=== PATIENT | male | born 1990 | race Caucasian/White ===

== ENCOUNTER 2019-01-11 21:01 | Emergency (ER) | payer SELFPAY ==
[~2019-01-11] VITALS: Ht 152.4 cm; Wt 71.0 kg
[2019-01-11 21:04] VITALS: Ht 152.4 cm; Wt 71.0 kg
--- NOTE | 2019-01-11 22:22 | ERD ---
ER Documentation Chief Complaint Chief Complaint GL slip&trip today, mouth pain bcoz of injury HPI 28-year-old male with no significant past medical history presents to the emergency department complaining of laceration to his left upper lip which began just prior to arrival after injury. The patient was running and tripped and fell forward onto his upper lip area. He reports 5/10 pain which is constant. He denies any difficulty opening or closing his jaw. He denies any headache. He did not strike any other part of his head. He took no medication for relief of symptoms prior to arrival. He denies loss of consciousness. He denies any nausea, vomiting, confusion, ataxia, or other symptoms at this time. Symptoms are currently mild in severity. ROS All systems reviewed and are negative except as per history of present illness. Medications Home Meds Active Scripts Bacitracin* (Bacitracin Zinc Oint*) 28.35 Gm Oint, 1 APPLIC TOP BID, #1 TUB APPLI TO Prov:VIRY RASHID PA-C 01/12/19 Allergies Allergies: Coded Allergies: No Known Allergy (Unverified , 01/11/19) PMhx/Soc Medical and Surgical Hx: pt denies Medical Hx, pt denies Surgical Hx Hx Alcohol Use: No Hx Substance Use: No Hx Tobacco Use: No Smoking Status: Never smoker FmHx Family History: No diabetes Physical Exam Vitals Vital Signs Date Temp Pulse Resp B/P (MAP) Pulse Ox O2 O2 Flow FiO2 Time Delivery Rate 01/12/19 98.1 78 17 116/74 99 Room Air 00:23 (88) 01/11/19 37.6 22:22 01/11/19 99.7 111 18 158/84 98 21:04 (108) Physical Exam Const: No acute distress Head: Atraumatic Eyes: Normal Conjunctiva ENT: Normal External Ears, Nose and Mouth. 2 cm Partial-thickness horizontal laceration noted to the left upper lip region with mild active bleeding and no obvious foreign body. Laceration does not cross the vermilion border. Neck: Full range of motion. No meningismus. Resp: Clear to auscultation bilaterally Cardio: Regular rate and rhythm, no murmurs Skin: No rashes. Back: No midline or flank tenderness Ext: No cyanosis, or edema Neur: Awake and alert Psych: Normal Mood and Affect Results 24 hrs Current Medications Medications Dose Sig/Yin Start Time Status Last (Trade) Ordered Route PRN Stop Time Admin Dose Reason Admin Ibuprofen 600 mg ONCE ONCE 01/11/19 DC 01/11/19 (Motrin) PO 22:30 22:22 01/11/19 22:31 Lidocaine 20 ml ONCE ONCE 01/11/19 DC 01/11/19 (Xylocaine INJ 22:30 22:22 2% (Mdv) 20 01/11/19 22:31 ml) Procedures/MDM 28-year-old male presented to the emergency department for laceration of his left upper lip. Full risks, benefits, alternatives were explained to the patient and he gave verbal consent for laceration repair with sutures. Patient has no neurological deficits and did not strike any other part of his head. No indication for CT scan of the head or face at this time. I doubt intracranial hemorrhage. I doubt facial fracture. Laceration Repair by me: Anesthesia: 1% lidocaine locally Location: Left upper lip Tendon/Joint/Nerves: No injury Foreign body: None detected after copious irrigation and exploration Technique: 4 simple Interrupted Sutures to the outer lip and 2 absorbable sutures to the inner lip. Complexity: No subcutaneous sutures/mucosal repair/edge excision Post Closure Length: 2 cm Patient's bleeding was easily controlled in the department and there is no yovani cation of anemia. No evidence of compartment syndrome, neurologic injury, vascular injury, open joint, tendon laceration, or foreign body. Patient is appropriate for outpatient follow up. 48 hour wound check. Scar minimization instructions given. no evidence of life-threatening pathology at time of discharge. Pt/family in agreement with discharge plan/diagnosis. Pt/family advised to return immediately with any new or worsening symptoms. Follow-up with primary care physician within the next 1-2 days. Patient's blood pressure was elevated (>120/80) but appears stable without evidence of hypertension emergency or urgency. The patient is to follow-up and pursue outpatient monitoring and therapy with their primary care physician within 1 week and return immediately if they have any new, worsening, or concerning symptoms. Disclaimer: Inadvertent spelling and grammatical errors are likely due to EHR/dictation software use and do not reflect on the overall quality of patient care. Also, please note that the electronic time recorded on this note does not necessarily reflect the actual time of the patient encounter. Departure Diagnosis: Primary Impression: Lip laceration Condition: Fair RASHID,VIRY J PA-C Jan 11, 2019 22:22
[2019-01-11] MEDS ORDERED: LIDOCAINE 2% (MDV) 20 ML INJ INJ ONE (22:30)
[2019-01-11] MEDS ORDERED: IBUPROFEN 600 MG TAB PO ONE (22:30)
[2019-01-12] MEDS ORDERED: BACI28.34 TOP (00:11)
[2019-01-12 00:23] VITALS: BP 116/74; PULSE 78; RESP 17
== END 2019-01-12 00:23 | disposition home or self-care (01) ==
LOC: FTE 21:01
DX: S01.511A Laceration without foreign body of lip, initial encounter (principal); W18.40XA Slipping, tripping and stumbling without falling, unspecified, initial encounter; Y92.9 Unspecified place or not applicable

== ENCOUNTER 2019-01-14 12:01 | Emergency (ER) | payer SELFPAY ==
[~2019-01-14] VITALS: Ht 160 cm; Wt 71.1 kg
[~2019-01-14 12:01] MED LIST: BACI28.34 TOP
[2019-01-14 12:07] VITALS: BP 123/67; PULSE 83; RESP 18; Ht 160 cm; Wt 71.1 kg
[2019-01-14] MEDS ORDERED: SULF1TAB31 PO (12:50)
[2019-01-14] MEDS ORDERED: CEPH-443 PO (12:50)
--- NOTE | 2019-01-14 12:55 | ERD ---
ER Documentation Chief Complaint Chief Complaint 2nd day wound check lip HPI 28-year-old male presents the emergency department for wound check of the upper lip. Patient had left upper lip laceration which was sutured by myself 3 days ago here. Patient is returning with purulent discharge from the laceration site. Patient is not on oral antibiotics at this time. The patient denies any significant pain, fevers, chills, or other symptoms at this time. Symptoms mild to moderate in severity currently. ROS All systems reviewed and are negative except as per history of present illness. Medications Home Meds Active Scripts Sulfamethoxazole/Trimethoprim* (Bactrim Ds* Tablet) 1 Each Tablet, 1 TAB PO BID, #14 TAB Prov:VIRY RASHID PA-C 01/14/19 Cephalexin* (Keflex*) 500 Mg Capsule, 500 MG PO QID for 7 Days, CAP Prov:VIRY RASHID PA-C 01/14/19 Bacitracin* (Bacitracin Zinc Oint*) 28.35 Gm Oint, 1 APPLIC TOP BID, #1 TUB APPLI TO Prov:VIRY RASHID PA-C 01/12/19 Allergies Allergies: Coded Allergies: No Known Allergy (Unverified , 01/11/19) PMhx/Soc Medical and Surgical Hx: pt denies Medical Hx, pt denies Surgical Hx Hx Alcohol Use: No Hx Substance Use: No Hx Tobacco Use: No Smoking Status: Never smoker FmHx Family History: No diabetes Physical Exam Vitals Vital Signs Date Temp Pulse Resp B/P (MAP) Pulse Ox O2 O2 Flow FiO2 Time Delivery Rate 01/14/19 98.6 83 18 123/67 100 12:07 (85) Physical Exam Const: No acute distress Head: Atraumatic Eyes: Normal Conjunctiva ENT: Normal External Ears, Nose and Mouth. Sutures in place over laceration to the left upper lip. There is purulent discharge noted with mild edema. No significant warmth or facial erythema. Neck: Full range of motion. No meningismus. Resp: No respiratory distress. Skin: No petechiae or rashes Ext: No cyanosis, or edema Neur: Awake and alert Psych: Normal Mood and Affect Results 24 hrs Current Medications Medications Dose Sig/Yin Start Time Status Last (Trade) Ordered Route PRN Stop Time Admin Dose Reason Admin Ceftriaxone 1 gm ONCE ONCE 01/14/19 01/14/19 Sodium IM 13:00 12:48 (Rocephin) 01/14/19 13:01 Lidocaine 20 ml ONCE ONCE 01/14/19 01/14/19 (Xylocaine SC 13:00 12:48 1% (Mdv) 20 01/14/19 13:01 ml) Procedures/MDM 28-year-old male is presenting for wound check of left upper lip laceration. Examination today was consistent with infection with purulent discharge. Patient was administered IM Rocephin 1 g in the department and will be given a prescription for Bactrim and Keflex. Patient advised to return in 2 days for repeat wound check and he should return sooner for any new or worsening or concerning symptoms. Shared my medical decision making with the patient and he understands and agrees with plan. Departure Diagnosis: Primary Impression: Encounter for wound re-check Condition: Fair Patient Instructions: Post Op Wound Check, Infection [facility] Usted se covarrubias hecho un examen mdico de control que le indica que no est en angelica condicin que requiera tratamiento urgente en el Departamento de Emergencia. Un estudio ms profundo y el tratamiento de avilez condicin pueden esperar sin ningn riesgo hasta que usted sea atendida/o en el consultorio de avilez mdico o angelica clnica. Es responsabilidad suya arreglar angelica renzo para el seguimiento del victor m. MANEJO DE CONDICIONES NO URGENTES EN EL FUTURO 1) Si usted tiene un mdico de atencin primaria: Usted debera llamar a avilez mdico de atencin primaria antes de venir al departamento de emergencia. Despus de las horas de consultorio, avilez doctor o avilez asociado/a est disponible por telfono. El mdico o enfermero de rhiannon en el servicio telefnico puede asesorarle por yonatan medio para atender el problema, o victor m contrario se puede programar angelica renzo. 2) Si usted no tiene un mdico de atencin primaria: Llame al mdico o clnica de referencia que aparece abajo edel las horas de consultorio para hacer angelica renzo para que le vean. CLINICAS: [place] [address] [phone] [facility] [phone] [address] [place] [address] [phone] [place] [address] [phone] [place] [address] [phone] [facility] [phone] [address] Additional Instructions: Llame al doctor MAANA y chelsey angelica RENZO PARA DENTRO DE 1-2 GAY.Dgale a la secretaria que nosotros le instruimos hacer esta renzo.Avise o llame si avilez condicin se empeora antes de la renzo. Regresa aqui si peor o no mejor. VIRY RASHID PA-C Jan 14, 2019 12:55
[2019-01-14] MEDS ORDERED: LIDOCAINE 1% (MDV) 20 ML INJ SC ONE (13:00)
[2019-01-14] MEDS ORDERED: CEFTRIAXONE 1 GM INJ IM ONE (13:00)
== END 2019-01-14 13:17 | disposition home or self-care (01) ==
LOC: FTE 12:01
DX: R60.0 Localized edema (principal)
CPT/HCPCS: 96372; 99284; J0696

== ENCOUNTER 2019-01-20 18:32 | Emergency (ER) | payer SELFPAY ==
[~2019-01-20] VITALS: Ht 157.5 cm; Wt 71.3 kg
[~2019-01-20 18:32] MED LIST changes: +CEPH-443 PO; +SULF1TAB31 PO
[2019-01-20 18:34] VITALS: BP 119/71; PULSE 76; RESP 20; Ht 157.5 cm; Wt 71.3 kg
== END 2019-01-21 03:10 | disposition left against medical advice (07) ==
LOC: FTE 18:32
DX: Z53.21 Procedure and treatment not carried out due to patient leaving prior to being seen by health care provider (principal)

== ENCOUNTER 2019-01-21 13:53 | Emergency (ER) | payer SELFPAY ==
[~2019-01-21] VITALS: Wt 71.6 kg
[2019-01-21 14:06] VITALS: BP 111/70; PULSE 78; RESP 16
--- NOTE | 2019-01-21 15:40 | ERD ---
ER Documentation Chief Complaint Chief Complaint wound check: p sutures to lip lac 01/12. HPI 28-year-old male presenting for suture removal on his lip. Patient had sutures placed on 626. Denies any complications. Denies other medical problems. NKDA. Surgical history denies. Social history denies ROS All systems reviewed and are negative except as per history of present illness. Medications Home Meds Active Scripts Sulfamethoxazole/Trimethoprim* (Bactrim Ds* Tablet) 1 Each Tablet, 1 TAB PO BID, #14 TAB Prov:VIRY RASHID PA-C 01/14/19 Cephalexin* (Keflex*) 500 Mg Capsule, 500 MG PO QID for 7 Days, CAP Prov:VIRY RASHID PA-C 01/14/19 Bacitracin* (Bacitracin Zinc Oint*) 28.35 Gm Oint, 1 APPLIC TOP BID, #1 TUB APPLI TO Prov:VIRY RASHID PA-C 01/12/19 Allergies Allergies: Coded Allergies: No Known Allergy (Unverified , 01/11/19) PMhx/Soc Medical and Surgical Hx: pt denies Medical Hx, pt denies Surgical Hx Hx Alcohol Use: No Hx Substance Use: No Hx Tobacco Use: No FmHx Family History: No diabetes, No coronary disease, No other Physical Exam Vitals Vital Signs Date Temp Pulse Resp B/P (MAP) Pulse Ox O2 O2 Flow FiO2 Time Delivery Rate 01/21/19 98.2 78 16 111/70 97 14:06 (84) Physical Exam GENERAL: The patient is well-appearing, well-nourished, in no acute distress HEENT: Atraumatic. Conjunctivae are pink. Pupils equal, round, and reactive to light. There is no scleral icterus. Tympanic membranes clear bilaterally. Oropharynx clear. CHEST: Clear to auscultation bilaterally. There are no rales, wheezes or rhonchi. HEART: Regular rate and rhythm. No murmurs, clicks, rubs or gallops. SKIN: Healed laceration noted to lip without any dehiscence of the wound. No swelling or purulence. Procedures/MDM ER course: Sutures removed without complication. MDM: 28-year-old male presenting for suture removal of the lip. Patient sutures were removed without complication. Patient is discharged with strict ER precautions. All questions answered at discharge Departure Diagnosis: Primary Impression: Encounter for removal of sutures Condition: Stable Patient Instructions: Suture Removal, No Complication Referrals: [facility] YOU HAVE RECEIVED A MEDICAL SCREENING EXAM AND THE RESULTS INDICATE THAT YOU DO NOT HAVE A CONDITION THAT REQUIRES URGENT TREATMENT IN THE EMERGENCY DEPARTMENT. FURTHER EVALUATION AND TREATMENT OF YOUR CONDITION CAN WAIT UNTIL YOU ARE SEEN IN YOUR DOCTORS OFFICE WITHIN THE NEXT 1-2 DAYS. IT IS YOUR RESPONSIBILITY TO MAKE AN APPOINTMENT FOR FOLOW-UP CARE. IF YOU HAVE A PRIMARY DOCTOR --you should call your primary doctor and schedule an appointment IF YOU DO NOT HAVE A PRIMARY DOCTOR YOU CAN CALL OUR PHYSICIAN REFERRAL HOTLINE AT IF YOU CAN NOT AFFORD TO SEE A PHYSICIAN YOU CAN CHOSE FROM THE FOLLOWING [facility] [place] [address] [facility] [address] [facility] [facility] [address] [facility] [address] [facility] [facility] [address] [facility] [facility] [address] Additional Instructions: FOLLOW UP WITH YOUR PRIMARY CARE PHYSICIAN TOMORROW.Return to this facility if you are not improving as expected. BRIGHT AUSTIN PA-C Jan 21, 2019 15:40
== END 2019-01-21 15:05 | disposition home or self-care (01) ==
LOC: FTE 13:53
DX: Z48.02 Encounter for removal of sutures (principal)
CPT/HCPCS: 99281